=== PATIENT | female | born 1950 | race Asian ===

== ENCOUNTER 2019-02-06 13:35 | Outpatient (CLI) | payer OTHER, MEDICARE | END 2019-02-06 19:45 | disposition home or self-care (01) | LOC: MRI 13:35 | DX: M54.2 Cervicalgia (principal); M25.531 Pain in right wrist; M54.5 Low back pain ==

== ENCOUNTER 2020-04-15 14:54 | Outpatient (CLI) | payer OTHER, MEDICARE | END 2020-04-15 20:04 | disposition home or self-care (01) | LOC: INF 14:54 | PROVIDERS: ATTEND Internal Medicine Endocrinology, Diabetes & Metabolism | DX: Z23 Encounter for immunization (principal) | CPT/HCPCS: 96372 ==

== ENCOUNTER 2020-05-11 09:20 | Outpatient (CLI) | payer OTHER, MEDICARE | END 2020-05-11 19:14 | disposition home or self-care (01) | LOC: INF 09:20 | PROVIDERS: ATTEND Internal Medicine | DX: Z23 Encounter for immunization (principal) | CPT/HCPCS: 96372 ==